=== PATIENT | female | born 1950 | race Hispanic/Latino ===

== ENCOUNTER 2018-10-19 02:17 | Emergency (ER) | payer MEDICARE ==
[~2018-10-19 02:17] MED LIST: ALEN70TA10 PO
[2018-10-19 02:47] LABS: APPEARANCE,URINE Clear (CLEAR); BILIRUBIN,URINE Negative (NEGATIVE); COLOR,URINE Yellow (YELLOW); GLUCOSE, URINE (UA) Negative (NEGATIVE); KETONES,URINE Negative (NEGATIVE); LEUKOCYTE ESTERASE ,URINE Negative (NEGATIVE); NITRATE,URINE Negative (NEGATIVE); OCCULT BLOOD,URINE Negative (NEGATIVE); PROTEIN,URINE Negative (NEGATIVE); UROBILINOGEN,URINE 0.2 mg/dL (0.2-1.0)
[2018-10-19] MEDS ORDERED: PHENAZOPYRIDINE HCL 200 MG TABLET ONE (02:52)
[2018-10-19] MEDS ORDERED: FLUCONAZOLE 100 MG TAB ONE (02:52)
[2018-10-19] MEDS ORDERED: DIAZEPAM 5 MG TABLET ONE (03:07)
[2018-10-19 03:20] LABS: BASOPHILS % (AUTO) 0.7 % (0.0-5.0); EOSINOPHILS % (AUTO) 0.2 % (0.0-8.0); HEMATOCRIT 40.3 % (36-48); LYMPHOCYTES % (AUTO) 22.2 % (21.0-51.0); MEAN CORPUSCULAR HEMOGLOBIN 30.1 pg (27.0-33.0); MEAN CORPUSCULAR HGB CONC 34.3 g/dL (32.0-36.0); MEAN CORPUSCULAR VOLUME 87.5 fL (79-99); MONOCYTES % (AUTO) 7.5 % (3.0-13.0); NEUTROPHILS % (AUTO) 69.4 % (40.0-77.0); NUCLEATED RED BLOOD CELLS 0.1 % (0.0-0.19); PLATELET COUNT (AUTO) 299 K/uL (130-400); RED BLOOD CELL COUNT(AUTO) 4.61 MIL/uL (4.00-5.50); RED CELL DISTRIBUTION WIDTH 14.2 % (11.0-15.5); WHITE BLOOD COUNT (AUTO) 14.1 K/uL (4.8-10.8)
[2018-10-19 03:27] LABS: CREATININE 1.1 mg/dL (0.5-1.5); POTASSIUM 4.3 mmol/L (3.5-5.1)
[2018-10-19 03:31] LABS: ALBUMIN 3.3 g/dL (3.5-5.0); BILIRUBIN,DIRECT 0.1 mg/dL (0.0-0.3); BILIRUBIN,TOTAL 0.3 mg/dL (0.2-1.0); TOTAL PROTEIN, SERUM 6.9 g/dL (6.0-8.3)
[2018-10-19] MEDS ORDERED: KETOROLAC TROMETHAMINE 15MG/ML ONE (03:49)
[2018-10-19] MEDS ORDERED: SODIUM CHLORIDE 0.9% 500ML 500 ML IV ONE (03:49)
== END 2018-10-19 05:14 | disposition home or self-care (01) ==
LOC: EDH 02:17
DX: N20.0 Calculus of kidney (principal); Z88.1 Allergy status to other antibiotic agents
CPT/HCPCS: 36415; 74176; 80048; 80076; 81003; 83690; 85025; 96374; 99285; J1885; J7040

== ENCOUNTER → 2019-03-17 | Outpatient (CLI) | payer OTHER | END | disposition home or self-care (01) | LOC: RAH 14:20 | PROVIDERS: ATTEND Internal Medicine Cardiovascular Disease | DX: Z13.6 Encounter for screening for cardiovascular disorders (principal) | CPT/HCPCS: 75571 ==

== ENCOUNTER → 2019-03-25 | Outpatient (CLI) | payer MEDICARE | END | disposition home or self-care (01) | LOC: SHCH 13:31 | PROVIDERS: ATTEND Internal Medicine Cardiovascular Disease | DX: I87.2 Venous insufficiency (chronic) (peripheral) (principal); I65.23 Occlusion and stenosis of bilateral carotid arteries; R01.1 Cardiac murmur, unspecified | CPT/HCPCS: 93306; 93880; 93970 ==

== ENCOUNTER 2020-10-25 17:07 | Emergency (ER) | payer MEDICARE ==
[~2020-10-25] VITALS: Ht 149.9 cm; Wt 122.0 kg
[~2020-10-25 17:07] MED LIST changes: -ALEN70TA10 PO; +ALEN70TA80 PO
[2020-10-25] MEDS ORDERED: HYDROMORPHONE 0.5 MG SYG (0.5MG/0.5ML) IVP ONE (17:30)
[2020-10-25] MEDS ORDERED: ONDANSETRON 4MG INJ IVP ONE (17:30)
[2020-10-25] MEDS ORDERED: SOLU-MEDROL 125MG VIAL IVP ONE (17:30)
[2020-10-25 18:05] LABS: BASOPHILS % (AUTO) 0.4 % (0.0-5.0); EOSINOPHILS % (AUTO) 0.3 % (0.0-8.0); HEMATOCRIT 45.1 % (36-48); LYMPHOCYTES % (AUTO) 22.2 % (21.0-51.0); MEAN CORPUSCULAR HEMOGLOBIN 30.7 pg (27.0-33.0); MEAN CORPUSCULAR HGB CONC 34.4 g/dL (32.0-36.0); MEAN CORPUSCULAR VOLUME 89.3 fL (79-99); MONOCYTES % (AUTO) 6.6 % (3.0-13.0); NEUTROPHILS % (AUTO) 69.7 % (40.0-77.0); PLATELET COUNT (AUTO) 404 K/uL (130-400); RED BLOOD CELL COUNT(AUTO) 5.05 MIL/uL (4.00-5.50); RED CELL DISTRIBUTION WIDTH 13.7 % (11.0-15.5); WHITE BLOOD COUNT (AUTO) 15.6 K/uL (4.8-10.8)
[2020-10-25] MEDS ORDERED: CYCL10TA7 PO (18:12)
[2020-10-25] MEDS ORDERED: PRED50TA2 PO (18:12)
[2020-10-25] MEDS ORDERED: ACET1TAB25 PO (18:12)
[2020-10-25 18:16] LABS: POTASSIUM 3.5 mmol/L (3.5-5.1)
[2020-10-25] MEDS ORDERED: ONDANSETRON 4MG INJ ONE (18:40)
[2020-10-25] MEDS ORDERED: SOLU-MEDROL 125MG VIAL ONE (18:41)
[2020-10-25] MEDS ORDERED: HYDROMORPHONE 1 MG INJ ONE (18:41)
[2020-10-25 19:10] VITALS: BP 0/0
== END 2020-10-25 19:42 | disposition home or self-care (01) ==
LOC: EDH 17:07
DX: M54.42 Lumbago with sciatica, left side (principal); Z88.1 Allergy status to other antibiotic agents; Z88.2 Allergy status to sulfonamides; Z79.52 Long term (current) use of systemic steroids; Z79.899 Other long term (current) drug therapy
CPT/HCPCS: 36415; 74176; 80048; 85025; 96374; 96375; 99284; J1170; J2405; J2930

== ENCOUNTER → 2020-11-10 | Outpatient (CLI) | payer MEDICARE ==
[~2020-11-10] MED LIST changes: +CYCL10TA7 PO; +IOHEXOL 350 MG/ML 100ML INFUS..BTL IV ONE; +PRED50TA2 PO
== END | disposition home or self-care (01) ==
LOC: RAH 13:52
PROVIDERS: ATTEND Family Medicine
DX: M43.16 Spondylolisthesis, lumbar region (principal); M47.816 Spondylosis without myelopathy or radiculopathy, lumbar region; M51.36 Other intervertebral disc degeneration, lumbar region; M48.061 Spinal stenosis, lumbar region without neurogenic claudication; M25.78 Osteophyte, vertebrae; M47.815 Spondylosis without myelopathy or radiculopathy, thoracolumbar region; M51.37 Other intervertebral disc degeneration, lumbosacral region
CPT/HCPCS: 72133; Q9967